=== PATIENT | female | born 1945 | race Caucasian/White ===

== ENCOUNTER → 2018-10-25 | Outpatient (CLI) | payer MEDICARE ==
--- NOTE | 2018-10-25 10:18 | PCVCIMAG ---
EXAM: BILATERAL CAROTID DUPLEX INDICATION: Carotid Occlusive Disease. Left amorous fugax. FINDINGS: Doppler Measurements (centimeters per second): RIGHT: Peak CCA-73, Peak ECA-56, Diastolic ICA-28, Peak ICA-77, ICA/CCA Ratio-1.1. LEFT: Peak CCA-77, Peak ECA-59, Diastolic ICA-19, Peak ICA-62, ICA/CCA Ratio-0.8. RIGHT CAROTID: The carotid bulb has minimal plaque. The proximal internal carotid artery shows no significant stenosis. The common carotid artery shows no significant stenosis. The external carotid artery shows no significant stenosis. LEFT CAROTID: The carotid bulb has minimal plaque. The proximal internal carotid artery shows no significant stenosis. The common carotid artery shows no significant stenosis. The external carotid artery shows no significant stenosis. Antegrade flow in both vertebral arteries. IMPRESSION: No significant stenosis of the right internal carotid artery with minimal plaque. No significant stenosis of the left internal carotid artery with minimal plaque. LOC:[place] [id number]
--- NOTE | 2018-10-25 11:06 | PCVCIMAG ---
APPROVED REPORT Study performed: 10/25/2018 08:30:34 EXAM: Comprehensive 2D, Doppler, and color-flow Echocardiogram Patient Location: Echo lab Room #: 2Status: routine BSA: 1.72 HR: 58 bpmBP: 120/66 mmHg Rhythm: Bradycardia Other Information Study Quality: Good Indications CVA/TIA L amaorosis fugax 2D Dimensions IVSd: 8.18 (7-11mm)LVOT Diam: 18.03 (18-24mm) LVDd: 43.24 mm PWd: 7.10 (7-11mm)Ascending Ao: 30.91 (22-36mm) LVDs: 26.89 (25-40mm) Left Atrium: 35.20 (27-40mm) Aortic Root: 26.63 mm LV Single Plane 4CH: 66.86 % LV Single Plane 2CH: 74.38 % Biplane EF: 72.0 % Volumes Left Atrial Volume (Systole) Single Plane 4CH: 40.01 mLSingle Plane 2CH: 31.63 mL Biplane LA Volume: 36.00 mLLA ESV Index: 21.00 mL/m2 Aortic Valve AoV Peak Anthony.: 1.09 m/s AO Peak Gr.: 4.80 mmHgLVOT Max P.48 mmHg LVOT Max V: 0.79 m/s CLAY Vmax: 1.84 cm2 Mitral Valve E/A Ratio: 1.0 MV Decel. Time: 169.72 ms MV E Max Anthony.: 0.65 m/s MV A Anthony.: 0.63 m/s IVRT: 110.73 ms TDI E/Lateral E': 9.29E/Medial E': 13.00 Medial E' Anthony.: 0.05 m/s Lateral E' Anthony.: 0.07 m/s Pulmonary Valve PV Peak Anthony.: 0.84 m/sPV Peak Gr.: 2.85 mmHg Tricuspid Valve TR Peak Anthony.: 2.46 m/s TR Peak Gr.: 24.15 mmHg TV Vmax: 0.55 m/sPA Pressure: 31.00 mmHg Left Ventricle The left ventricle is normal size. There is normal LV segmental wall motion. There is normal left ventricular wall thickness. Left ventricular systolic function is normal. The left ventricular ejection fraction is within the normal range. LVEF is >70%. Right Ventricle The right ventricle is normal size. The right ventricular systolic function is normal. Atria The left atrium size is normal. The right atrium size is normal. Aortic Valve Aortic valve is trileaflet. The aortic valve is normal in structure and function. Trace aortic regurgitation. There is no aortic valvular stenosis. Mitral Valve The mitral valve is normal in structure. Trace mitral regurgitation. No evidence of mitral valve stenosis. Tricuspid Valve The tricuspid valve is normal in structure. Mild tricuspid regurgitation with a PA pressure of 31 mmHg Pulmonic Valve The pulmonary valve is normal in structure. There is no pulmonic valvular regurgitation. Great Vessels The aortic root is normal in size. The ascending aorta is normal in size. Aortic arch is normal in caliber. IVC is normal in size and collapses >50% with inspiration. Pericardium There is no pericardial effusion. There is no pleural effusion. <Conclusion> The left ventricle is normal size. There is normal left ventricular wall thickness. Left ventricular systolic function is normal. The right ventricle is normal size. The left atrium size is normal. The aortic valve is normal in structure and function. Trace aortic regurgitation. Trace mitral regurgitation. Mild tricuspid regurgitation with a PA pressure of 31 mmHg
== END | disposition home or self-care (01) ==
LOC: PCVCIMAG 08:32
DX: I07.1 Rheumatic tricuspid insufficiency (principal)
CPT/HCPCS: 93306; 93880